=== PATIENT | female | born 1940 | race Caucasian/White ===

== ENCOUNTER 2016-10-22 16:44 | Emergency (ER) | payer OTHER ==
--- NOTE | 2016-10-22 17:10 | EDPHY ---
H & P Time Seen by Provider: 10/22/16 16:54 HPI/ROS: CHIEF COMPLAINT: Head trauma after a fall HISTORY OF PRESENT ILLNESS: Patient had a mechanical fall around 3:30 p.m. when she fell getting out of the car at [facility], onto cement. She did not lose consciousness but landed on her face and her left hand and both knees. She did not lose consciousness and has not had vomiting. She does have a mild to moderate left-sided headache and facial pain, does not radiate, not better worse with anything. No weakness or numbness in extremities. No double vision. REVIEW OF SYSTEMS: Eye: no change in vision or double vision ENT: no sore throat Cardiac: no chest pain or syncope Pulmonary: no cough or SOB Abdomen: no vomiting, diarrhea, abdominal pain Musculoskeletal: no back pain. Some chronic neck pain which is unchanged and no new neck or back symptoms since the fall. Skin: Abrasions both knees. Neuro: HPI Constitutional: no fever : no urinary symptoms A comprehensive 10 point review of systems is otherwise negative aside from elements mentioned in the history of present illness. PAST MEDICAL HISTORY: Includes AFib and ablation, history of breast cancer. Tetanus up-to-date. Social history: Visiting from [facility] General Appearance: Alert and conversant, cooperative. Eyes: No scleral icterus. Extraocular motion intact. ENT, Mouth: Normal mucous membranes. Bruising swelling and tenderness on the left side of the face around the orbit and maxilla. Respiratory: Normal respiratory effort, breath sounds equal, lungs are clear to auscultation. Cardiovascular: Regular rate and rhythm. Gastrointestinal: Abdomen is soft and non tender. Neurological: Alert and oriented x3. Normally conversant. Face symmetric, normal movement and sensation in all extremities. Skin: Abrasions both knees. Musculoskeletal: No cervical thoracic or lumbar spine tenderness to palpation. No left wrist snuffbox tenderness. Tenderness and swelling to the dorsum of the left hand but normal motor sensory and capillary refill in the fingers left hand. Skin abrasions of both knees but both are stable and have normal range of motion and no bony tenderness. Psychiatric: Not agitated. Emergency Department course/MDM: Noncontrast head and facial CT for headache and head trauma in a 76-year-old patient. Left hand x-ray. Results discussed with the patient. Mandatory orthopedic follow-up back in [place]. Smoking Status: Never smoked Constitutional: Initial Vital Signs Temperature (C) 36.4 C 10/22/16 16:49 Heart Rate 64 10/22/16 16:49 Respiratory Rate 16 10/22/16 16:49 Blood Pressure 146/77 H 10/22/16 16:49 O2 Sat (%) 98 10/22/16 16:49 O2 Delivery Mode Room Air Allergies/Adverse Reactions: Sulfa (Sulfonamide Antibiotics) Allergy (Verified 10/22/16 16:48) Home Medications: Medication Instructions Recorded Atenolol 10/22/16 Wellbutrin Sr 10/22/16 Medical Decision Making - Diagnostics Imaging Results: Imaging Impressions Hand X-Ray 10/22/16 16:54 Impression: Acute mildly impacted obliquely-oriented fracture involving the proximal metaphyseal aspect of the fifth metacarpal. Face CT 10/22/16 17:06 Impression: 1. No evidence of maxillofacial fracture. 2. Prior sinus surgery, with mild residual mucosal thickening. 3. Osteoarthritis of the left mandibular condyle. Findings and recommendations discussed with Emergency Department physician, Dejon Groves M.D., at 1742 hours, on October 22, 2016. Final report concurs with initial preliminary interpretation. Head CT 10/22/16 17:06 Impression: 1. Cerebrovascular atherosclerosis. 2. Otherwise normal CT brain. 3. No epidural or subdural hematoma. 4. No skull fracture. Findings and recommendations discussed with Emergency Department physician, Dejon Groves M.D., at 1739 hours, on October 22, 2016. Final report concurs with initial preliminary interpretation. Negative head and facial CT per Isuani at 5:37 p.m. Imaging: I viewed and interpreted images myself Procedures: Procedure: Splint placement. A left Ortho Glass ulnar gutter wrist and hand splint was applied. After application of the splint I returned and re-examined the patient. The splint was adequately immobilizing the joint and distal to the splint the patient's circulation and sensation was intact. Differential Diagnosis: Differential diagnosis considered for head injury including but not limited to concussion, skull fracture, intraparenchymal contusion, subarachnoid, subdural and epidural hematoma. Departure - Departure Disposition: Home, Routine, Self-Care Clinical Impression: Fracture of metacarpal of left hand, closed Facial contusion Qualifiers: Encounter type: initial encounter Qualified Code(s): S00.83XA - Contusion of other part of head, initial encounter Condition: Good Instructions: Hand Fracture (ED), Head Injury (ED) Additional Instructions: Wear splint on left hand; follow-up with billing collections specialist back home in the next week for re-evaluation. Negative head and facial CT. Referrals: ELMER ROSALES [Other] - As per Instructions dr que [Other] - As per Instructions (your PCP in [place])
[2016-10-22 19:03] VITALS: BP 140/59; PULSE 69; RESP 18; TEMP 97.3; O2SAT 91
== END 2016-10-22 19:03 | disposition home or self-care (01) ==
DX: S62.307A Unspecified fracture of fifth metacarpal bone, left hand, initial encounter for closed fracture (principal); S00.83XA Contusion of other part of head, initial encounter; Z85.3 Personal history of malignant neoplasm of breast; W18.39XA Other fall on same level, initial encounter